=== PATIENT | male | born 1960 | race Caucasian/White ===

== ENCOUNTER 2021-05-02 10:34 | Emergency (ER) | payer OTHER ==
[~2021-05-02] VITALS: Ht 180.3 cm; Wt 59.0 kg
[2021-05-02] MEDS ORDERED: Vitamin B-150 MG PO (11:00)
[2021-05-02] MEDS ORDERED: FOLI1 PO ×2 (11:00→12:22)
[2021-05-02] MEDS ORDERED: MIDO5 PO ×2 (11:00→12:22)
[2021-05-02] MEDS ORDERED: LASIX40 MG PO ×2 (11:00→12:22)
[2021-05-02] MEDS ORDERED: SPIR25 PO (11:00)
[2021-05-02] MEDS ORDERED: CONSTULOSE10 GM/15 M PO ×2 (11:01→12:22)
[2021-05-02] MEDS ORDERED: ONDA4 PO ×2 (11:58→12:22)
[2021-05-02] MEDS ORDERED: CYCL10 PO ×2 (11:58→12:22)
[2021-05-02] MEDS ORDERED: ALDACTONE100 MG PO ×2 (11:59→12:22)
[2021-05-02] MEDS ORDERED: TAMS.4ER PO ×2 (11:59→12:22)
[2021-05-02] MEDS ORDERED: TRAM50 PO ×2 (11:59→12:22)
[2021-05-02] MEDS ORDERED: LIDO700A20 TOP ×2 (12:00→12:22)
[2021-05-02] MEDS ORDERED: PANT40 PO ×2 (12:13→12:22)
[2021-05-02] MEDS ORDERED: RIFA550T2 PO ×2 (12:14→12:22)
== END 2021-05-02 12:36 | disposition home or self-care (01) ==
LOC: ER 10:34
DX: Z76.0 Encounter for issue of repeat prescription (principal); K74.60 Unspecified cirrhosis of liver
CPT/HCPCS: 99283